=== PATIENT | female | born 1975 | race Caucasian/White ===

== ENCOUNTER 2020-01-30 18:39 | Emergency (ER) | payer SELFPAY ==
[~2020-01-30] VITALS: Ht 175.3 cm; Wt 70.0 kg
[2020-01-30 18:59] VITALS: BP 157/99
== END 2020-01-31 03:00 | disposition left against medical advice (07) ==
LOC: ER 18:46
DX: Z53.21 Procedure and treatment not carried out due to patient leaving prior to being seen by health care provider (principal)